=== PATIENT | female | born 1970 | race Caucasian/White ===

== ENCOUNTER 2016-07-15 14:18 | Emergency (ER) | payer MEDICAID ==
[2016-07-15 14:18] VITALS: BMI 24.2
[2016-07-15 14:27] VITALS: RESP 18; O2SAT 100
[2016-07-15] MEDS ORDERED: Sodium Chloride 0.9% 1,000 ML IV ONE (14:39)
[2016-07-15] MEDS ORDERED: Sodium Chloride 0.9% 1,000 ML ONE (14:44)
[2016-07-15 14:59] LABS: BASO # 0.1 K/uL (0.0-0.2); BASO % 0.6 % (0.0-2.0); EOS # 0.1 K/uL (0.0-0.7); HEMATOCRIT 35.6 % (34.0-47.0); LYMPH # 2.1 K/uL (1.0-4.3); LYMPH % 16.1 % (20.0-40.0); MEAN CELL VOLUME 89.6 fL (81.0-99.0); MEAN CORPUSCULAR HEMOGLOBIN 30.1 pg (27.0-31.0); MEAN CORPUSCULAR HGB CONC 33.6 g/dL (33.0-37.0); MEAN PLATELET VOLUME 8.1 fL (7.2-11.7); MONO % 7.4 % (0.0-10.0); RED CELL DISTRIBUTION WIDTH 13.2 % (11.5-14.5); WHITE BLOOD COUNT 13.1 K/uL (4.8-10.8)
[2016-07-15 15:08] LABS: CHLORIDE 100 mmol/L (98-107); RBC URINE < 1 /hpf (0-3); URINE BILIRUBIN NEGATIVE (NEGATIVE); URINE BLOOD 1+ (NEGATIVE); URINE COLOR Yellow (YELLOW); URINE GLUCOSE (UA) NORMAL (Normal); URINE HYALINE CAST 0-2 /lpf (0-2); URINE KETONE NEGATIVE (NEGATIVE); URINE LEUKOCYTE ESTERASE NEG Leu/uL (Negative); URINE PROTEIN NEGATIVE (NEGATIVE); URINE UROBILINOGEN NORMAL mg/dL (0.2-1.0); WBC URINE < 1 /hpf (0-5)
[2016-07-15 15:09] LABS: POTASSIUM 3.7 mmol/L (3.6-5.2); SODIUM 143 mmol/L (132-148)
[2016-07-15 15:11] LABS: ALB/GLOB RATIO 1.5 (1.0-2.1); ALKALINE PHOSPHATASE 88 U/L (38-126); ALT/SGPT 17 U/L (9-52); AST/SGOT 20 U/L (14-36); BILIRUBIN,TOTAL 0.7 mg/dL (0.2-1.3); BLOOD UREA NITROGEN 12 mg/dL (7-17); CARBON DIOXIDE 29 mmol/L (22-30); GFR AFRICAN-AMERICAN > 60; GLUCOSE,RANDOM 95 mg/dL (65-105); TOTAL PROTEIN 7.5 g/dL (6.3-8.3)
[2016-07-15 15:12] LABS: CALCIUM 9.4 mg/dl (8.6-10.4)
[2016-07-15 15:39] LABS: PARTIAL THROMBOPLASTIN TIME 31 SECONDS (21-34)
--- NOTE | 2016-07-15 16:49 | CT ---
PROCEDURE: CT Abdomen and Pelvis without intravenous contrast HISTORY: Right back/flank pain COMPARISON: None. TECHNIQUE: Axial computed tomographic images were performed through the abdomen and pelvis without the use of intravenous contrast. Subsequently, sagittal and coronal reformatted images were obtained. Radiation dose: Total exam DLP = 372 mGy-cm. This CT exam was performed using one or more of the following dose reduction techniques: Automated exposure control, adjustment of the mA and/or kV according to patient size, and/or use of iterative reconstruction technique. FINDINGS: LOWER THORAX: 2 millimeter pulmonary nodule within the right middle lobe on series 3, image 7. Mild bibasilar atelectasis. LIVER: Unremarkable. No gross lesion or ductal dilatation. GALLBLADDER AND BILE DUCTS: Unremarkable. PANCREAS: Unremarkable. No gross lesion or ductal dilatation. SPLEEN: Unremarkable. ADRENALS: Unremarkable. No mass. KIDNEYS AND URETERS: Unremarkable. No hydronephrosis. No solid mass. VASCULATURE: Unremarkable. No aortic aneurysm. BOWEL: Mild thickening versus underdistention of the descending colon and a portion of the distal sigmoid colon/ proximal rectum. Clinical correlation. APPENDIX: Unremarkable. Normal appendix. PERITONEUM: Unremarkable. No free fluid. No free air. LYMPH NODES: Unremarkable. No enlarged lymph nodes. BLADDER: Unremarkable. REPRODUCTIVE: Unremarkable. BONES: No acute fracture. OTHER FINDINGS: None. IMPRESSION: Mild thickening versus underdistention of the descending colon and a portion of the distal sigmoid colon/ proximal rectum. Clinical correlation. 2 millimeter pulmonary nodule within the right middle lobe on series 3, image 7.
--- NOTE | 2016-07-15 16:56 | C.PDOC ---
History Of Present Illness Pt c/o right mid/upper back pain. 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 History/Exam Limitations: language barrier Onset/Duration Of Symptoms: Days (1) Current Symptoms Are (Timing): Still Present Quality Of Discomfort: "Pain" Severity: Moderate Previous Symptoms: None Associated Symptoms: None Exacerbating Factor(s): Movement Additional History Per: Prior Records Past Medical History Reviewed: Historical Data, Nursing Documentation, Vital Signs Vital Signs: Last Vital Signs Temp 98.2 F 07/15/16 14:23 Pulse 94 H 07/15/16 14:23 Resp 18 07/15/16 14:23 BP 143/97 H 07/15/16 14:23 Pulse Ox 100 07/15/16 14:23 - Medical History PMH: No Chronic Diseases Surgical History: No Surg Hx Family History: States: Unknown Family Hx - Social History Hx Tobacco Use: No Hx Alcohol Use: Yes Hx Substance Use: No - Immunization History Hx Tetanus Toxoid Vaccination: No Hx Influenza Vaccination: No Hx Pneumococcal Vaccination: No Review Of Systems Except As Marked, All Systems Reviewed And Found Negative. Constitutional: Negative for: Fever, Weakness Cardiovascular: Negative for: Chest Pain Respiratory: Negative for: Shortness of Breath, Hemoptysis Gastrointestinal: Negative for: Nausea, Vomiting, Abdominal Pain, Diarrhea Genitourinary: Negative for: Dysuria, Hematuria Musculoskeletal: Positive for: Back Pain. Negative for: Neck Pain, Leg Pain Skin: Negative for: Rash Neurological: Negative for: Weakness, Numbness, Seizures, Altered Mental Status Physical Exam - Physical Exam Appears: Non-toxic, Other (Uncomfortable in pain) Skin: Normal Color, Warm, Dry, No Rash Head: Atraumatic, Normacephalic Eye(s): bilateral: PERRL, EOMI Neck: Normal ROM, Supple Cardiovascular: Rhythm Regular Respiratory: Normal Breath Sounds, No Accessory Muscle Use Gastrointestinal/Abdominal: Soft, No Tenderness Back: No Vertebral Tenderness, Paraspinal Tenderness (right upper) Extremity: Normal ROM, No Pedal Edema, No Calf Tenderness Extremity: Bilateral: Normal Color And Temperature Neurological/Psych: Oriented x3, Normal Motor, Normal Sensation ED Course And Treatment - Laboratory Results Result Diagrams: 07/15/16 14:54 07/15/16 14:54 Lab Interpretation: No Acute Changes Urine POC: Negative O2 Sat by Pulse Oximetry: 100 Pulse Ox Interpretation: Normal - Radiology CXR: Interpreted by Me, Viewed By Me CXR Interpretation: Yes: No Acute Disease - CT Scan/US CT abdomen/pelvis Other Rad Studies (CT/US): Read By Radiologist, Radiology Report Reviewed CT/US Interpretation: IMPRESSION: Mild thickening versus underdistention of the descending colon and a portion of the distal sigmoid colon/ proximal rectum. Clinical correlation. 2 millimeter pulmonary nodule within the right middle lobe on series 3, image 7. Progress - Interventions Interventions:: Observation, Intravenous fluid - Medications Administered Intravenous: NSAID - Data Reviewed Data Reviewed: Lab, Diagnostic imaging, Old records - Patient Status Patient status: Mostly improved - Continuity of Care Discussed patient case with:: Patient, Family-HIPPA compliant, ED Nurse - Patient Plan Patient Plan: Discharge, F/U with PCP Disposition Counseled Patient/Family Regarding: Studies Performed, Diagnosis, Need For Followup, Rx Given - Disposition Referrals: Julio Lobo Jr., MD [Non-Staff] - Disposition: HOME/ ROUTINE Disposition Time: 16:57 Condition: IMPROVED Additional Instructions: Follow up with your doctor this week for further evaluation and treatment. Return to the ER if you develop fever, vomiting, shortness of breath, worsening of symptoms or if you have any other concerns. Prescriptions: Cyclobenzaprine [Cyclobenzaprine HCl] 1 tab PO TID PRN #15 tab PRN Reason: Muscle Spasm Naproxen [Naprosyn] 1 tab PO BID PRN #20 tab PRN Reason: Pain Instructions: Back Pain (ED) Print Language: SWISS - Clinical Impression Clinical Impression: Upper back pain on right side, Pulmonary nodule, right
[2016-07-15 17:07] VITALS: BP 131/88; PULSE 79; TEMP 98.7
--- NOTE | 2016-07-15 18:04 | RAD ---
PROCEDURE: CHEST RADIOGRAPH, 1 VIEW HISTORY: Right upper back pain COMPARISON: None available. FINDINGS: LUNGS: Mild venous congestion. PLEURA: No pneumothorax or pleural fluid seen. CARDIOVASCULAR: Normal. OSSEOUS STRUCTURES: No significant abnormalities. VISUALIZED UPPER ABDOMEN: Normal. OTHER FINDINGS: None. IMPRESSION: Mild venous congestion.
== END 2016-07-15 17:13 | disposition home or self-care (01) ==
LOC: C.ER 14:18
DX: M54.89 Other dorsalgia (principal); R91.1 Solitary pulmonary nodule
CPT/HCPCS: 71010; 74176; 80053; 81001; 83690; 84703; 85025; 85378; 85610; 85730; 96361; 96374; 96375; 99285; J1885; J7040

== ENCOUNTER 2017-05-06 07:33 | Emergency (ER) | payer MEDICAID ==
[2017-05-06 07:37] VITALS: BMI 25.7
[2017-05-06] MEDS ORDERED: Tetracaine 0.5% Ophth 2 ML BOTTLE OU ONE (07:57)
[2017-05-06] MEDS ORDERED: Fluorescein 1 mg Ophthalmic Strip OD ONE (07:57)
--- NOTE | 2017-05-06 07:57 | C.PDOC ---
History Of Present Illness 46 y/o female presents to ED for evaluation of swollen right eye this this morning. Patient states she went to sleep last night asymptomatic and woke up this morning with the swelling. PT denies itching, eye discharge or FB. No known allergen including food or new medication. Denies injury to eye, vision changes, eye pain, or fever. Time Seen by Provider: 05/06/17 07:39 Chief Complaint (Nursing): Eye Problem History Per: Patient History/Exam Limitations: no limitations Onset/Duration Of Symptoms: Days Current Symptoms Are (Timing): Still Present Past Medical History Reviewed: Historical Data, Nursing Documentation, Vital Signs Vital Signs: Last Vital Signs Temp 98.2 F 05/06/17 09:28 Pulse 69 05/06/17 09:28 Resp 20 05/06/17 09:28 BP 144/82 05/06/17 09:28 Pulse Ox 96 05/06/17 09:28 - Medical History PMH: No Chronic Diseases Surgical History: No Surg Hx Family History: States: No Known Family Hx - Social History Hx Tobacco Use: No Hx Alcohol Use: Yes Hx Substance Use: No - Immunization History Hx Tetanus Toxoid Vaccination: No Hx Influenza Vaccination: No Hx Pneumococcal Vaccination: No Review Of Systems Constitutional: Negative for: Fever, Chills Eyes: Positive for: Eyelid Inflammation. Negative for: Vision Change Cardiovascular: Negative for: Chest Pain Respiratory: Negative for: Shortness of Breath Skin: Negative for: Rash Physical Exam - Physical Exam Appears: Non-toxic, No Acute Distress Skin: Warm, Dry, No Rash Head: Atraumatic, Normacephalic Eye(s): bilateral: PERRL, EOMI, right: Other (or chemosis) Nose: Normal Oral Mucosa: Moist Tongue: No Swelling Lips: No Swelling Throat: Normal, No Erythema, No Exudate, No Drooling Neck: Normal ROM, Supple Chest: Symmetrical Cardiovascular: Rhythm Regular Respiratory: Normal Breath Sounds, No Accessory Muscle Use, No Rales, No Rhonchi , No Wheezing Extremity: Normal ROM Neurological/Psych: Oriented x3, Normal Speech ED Course And Treatment O2 Sat by Pulse Oximetry: 98 (RA) Pulse Ox Interpretation: Normal Progress Note: Prednisone, Benadryl, Clindamycin ordered . On reassessment, patient is resting comfortable and tolerating PO with no intraoral swelling or difficulty breathing. Patient instructed to follow up with physician/clinic in 1 -2 days or return to ED if symptoms persist or worsen. CAse discussed with Dr Kaplan, agreed upon plan and treatment. Disposition - Disposition Referrals: Hubert Darden MD [Staff Provider] - Disposition: HOME/ ROUTINE Disposition Time: 08:30 Condition: STABLE Additional Instructions: [place] la medicacin segn lo prescrito. Regrese a la nacho de emergencias de inmediato si los symtpoms persisten o empeoran. Ruben un seguimiento con ridley m dico en 1-2 winter para lilian nueva evaluacin. Prescriptions: Clindamycin [Clindamycin HCl] 450 mg PO TID 10 Days cap DiphenhydrAMINE [Benadryl] 25 mg PO Q6 #20 cap Instructions: Periorbital Cellulitis in Adults (ED) Forms: [employer] (Bengali) Print Language: MALIAN - Clinical Impression Clinical Impression: Preseptal cellulitis - PA / SOCIAL MEDIA MANAGER / Resident Statement MD/DO has reviewed & agrees with the documentation as recorded. - Scribe Statement The provider has reviewed the documentation as recorded by the Miniibazul Martinez All medical record entries made by the Krystal were at my direction and personally dictated by me. I have reviewed the chart and agree that the record accurately reflects my personal performance of the history, physical exam, medical decision making, and the department course for this patient. I have also personally directed, reviewed, and agree with the discharge instructions and disposition.
[2017-05-06] MEDS ORDERED: Fluorescein 1 mg Ophthalmic Strip ONE (08:08)
[2017-05-06] MEDS ORDERED: Tetracaine 0.5% Ophth (OR ONLY) ONE (08:10)
[2017-05-06] MEDS ORDERED: MethylPREDNISolone 40 mg Vial IVP STA (08:12)
[2017-05-06] MEDS ORDERED: MethylPREDNISolone 40 mg Vial IM STA (08:28)
[2017-05-06] MEDS ORDERED: MethylPREDNISolone 40 mg Vial ONE (08:31)
[2017-05-06 09:29] VITALS: BP 144/82; PULSE 69; RESP 20; TEMP 98.2
[2017-05-06 13:23] VITALS: O2SAT 98
== END 2017-05-06 09:29 | disposition home or self-care (01) ==
LOC: C.ER 07:33
DX: L03.213 Periorbital cellulitis (principal)
CPT/HCPCS: 96372; 99283; J2920